=== PATIENT | female | born 1980 | race Caucasian/White ===

== ENCOUNTER 2016-09-10 08:57 | Emergency (ER) | payer OTHER ==
[~2016-09-10] VITALS: Ht 157.5 cm; Wt 66.2 kg
[2016-09-10 09:01] VITALS: BP 131/92; PULSE 94; RESP 12; O2SAT 98
--- NOTE | 2016-09-10 09:11 | ED.REPORT ---
HPI-Eye Problem Date of Service Sep 10, 2016 ED Provider: The patient is a 36 year old female with a history of antiphospholipid antibody syndrome, who presents to the emergency department complaining of double vision. This morning around 0725 the patient experienced about 3 minutes of double vision. She tried closing her eyes and opening them with no improvement. She looked in the mirror and noted that her eyes were not crossed. She was able to walk to her bed to lay down and the symptoms resolved in a few minutes. Her vision is now back to baseline. She was wearing glasses when the event occurred. She denies seeing floaters or a curtain coming down, photophobia, eye pain, blurry vision, numbness, weakness or headache. She denies recent trauma or injury. At this time she feels shaky but is otherwise normal. She has occasional migraines and has experienced photophobia in the past but has never noticed neurologic symptoms. Her LNMP was late July. She is not on brith control but does not believe there is any chance she could be . Nursing Notes Stated Complaint: DOUBLE VISION Chief Complaint: Neuro Symptoms/ Deficits Nursing Notes Reviewed: Yes Allergies: Coded Allergies: No Known Allergies (Unverified , 09/10/16) General Time Seen by MD: 09:10 Chief Complaint Both eyes affected, Double vision Hx Obtained From: Patient Arrived By: Walk-in Sudden in Onset?: Yes Onset Occurred: 1 - 4 hours ago Symptom Duration: 1 - 15 minutes Progression Since Onset: Resolved Severity: Current: No pain currently Severity: Maximum: No pain Pertinent Negative: Pt denies other symptoms Recent Healthcare: No recent doctor visit, No recent hospitalization Similar Sx Previous: No Past Medical History Past Medical History Hx of antiphospholipid syndrome Occasional migraines Family History Noncontributory Social History Other Social History: Good social support, , Lives with children, Local resident 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 Physical Exam Initial Vital Signs Vital Signs (First) Date Time Temp Pulse Resp B/P Pulse Ox O2 Delivery O2 Flow Rate FiO2 09/10/16 09:01 36.4 94 12 131/92 98 Room Air Initial VS: Reviewed ENT: Mucous membranes moist, Conjunctiva normal, No scleral icterus Neck: Supple, Non-tender, Full range of motion Respiratory: Breath sounds normal, Clear to auscultation, No respiratory distress Cardiovascular: Regular rate & rhythm, Heart sounds normal, Intact distal pulses Abdomen / GI: Soft, Non-tender, No guarding, No rebound, No distention Lymphatic: No lymphadenopathy Extremities: Vascular intact, Neuro intact, No swelling, No tenderness Skin: Warm, Dry, No cyanosis Psychiatric: Mood/affect normal, Behavior normal, Normal thought content Head / Eyes: Atraumatic, Normocephalic, PERRL, EOMI Pupils are 3 mm, equal, round, and reactive bilaterally. No foreign bodies or evidence of trauma to the eyes. Corneal light reflex is equal bilaterally. fundoscopic exam is normal. Optic discs are sharp. normal vasculature. Visual acuity 20/25 for both eyes. General/Constitutional: Awake, Alert, No acute distress, Well appearing, Well developed, Well hydrated, Well nourished, Cooperative Neurologic: Oriented X3, Speech NL, No motor deficits, No sensory deficits, CN II - XII intact, Cerebellar NL, Memory NL, Gait NL No pronator drift. Strength is 5/5 in the upper and lower extremities. Sensation intact. Interpretation & Diagnostics Interpretation & Diagnostics: Urine : negative Lab Results Interpretation Result Diagram: 09/10/16 1030 09/10/16 1030 Test 09/10/16 10:30 White Blood Count 5.5th/mm3 (3.8-10.1) Red Blood Count 5.02mil/mm3 (3.90-5.20) Hemoglobin 14.1g/dL (12.0-15.6) Hematocrit 40.9% (35.0-46.0) Mean Corpuscular Volume 81.5fL (81-100) Mean Corpuscular Hemoglobin 28.1pg (27.0-35.0) Mean Corpuscular Hemoglobin Concent 34.5% (32.0-37.0) Red Cell Distribution Width 13.0% (12.3-15.4) Platelet Count 178bil/L (150-400) Neutrophils (%) (Auto) 59.3% (40-74) Lymphocytes (%) (Auto) 30.9% (14-46) Monocytes (%) (Auto) 7.6% (4-12) Eosinophils (%) (Auto) 1.8% (0-5) Basophils (%) (Auto) 0.2% (0-3) Prothrombin Time 11.1sec (8.1-12.5) Prothromb Time International Ratio 1.04ratio Activated Partial Thromboplast Time 32.0sec (22.8-33.0) Sodium Level 136mEq/L (134-144) Potassium Level 4.2mEq/L (3.5-5.2) Chloride Level 99mEq/L (97-108) Carbon Dioxide Level 23mmol/L (18-29) Blood Urea Nitrogen 17mg/dL (6-20) Creatinine 0.71mg/dL (0.57-1.00) Estimat Glomerular Filtration Rate 133mL/min (>59) Glucose Level 91mg/dL (60-99) Calcium Level 9.8mg/dL (8.5-10.1) Total Bilirubin 0.5mg/dL (0.0-1.2) Aspartate Amino Transf (AST/SGOT) 23U/L (0-50) Alanine Aminotransferase (ALT/SGPT) 21U/L (0-32) Alkaline Phosphatase 81U/L (25-150) Total Protein 8.2g/dL (6.4-8.4) Albumin 4.6g/dL (3.4-5.0) Hold Haskins Top Tube Received (Received) Re-Eval/Medical Decision Med Decision/Clinical Course The patient is a 36 year old female in generally excellent health with a history of 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 Here in the emergency department she reports absolutely no other associated neurologic symptoms and has a completely nonfocal culture had some neurologic assessment. She is afebrile with stable vital signs and in no apparent distress. In the past her antiphospholipid antibody syndrome is been manifested by placental insufficiency during her first however she has never had any other manifestations of her antiphospholipid antibody syndrome such as TIA, stroke, DVT or pulmonary embolism. She does not currently take aspirin or any other blood thinners for that matter. She was treated with Lovenox during her subsequent 2 pregnancies though she is currently not and has not recently been treated with any blood thinners. While antiphospholipid antibody syndrome can be associated with TIA/stroke and focal neurologic manifestations for what I can gather the patient's antiphospholipid antibody syndrome is in the past only been manifested during . Her ophthalmologic and neurologic examinations here are completely nonfocal. I explained to the patient that I cannot definitively rule out TIA and that our suspicion is slightly higher for TIA given her history. Being said , the patient is completely back to baseline and does not desire admission to the hospital or extensive expedited workup. Discussed with Dr. Angel and he agrees that concern would be TIA 2/2 hypercoagulable state, full workup would be MRI and MRA so this can be done on an outpatient basis. Would recommend starting baby ASA daily. First aspirin administered here in emergency department. Basic Labs requested. Return for any returning symptoms per our conversation. Updated patient as to plan for expedited outpatient workup. She prefers this. She remained neurologically intact without any ongoing symptoms. Laboratory studies including CBC and CMP were unremarkable. Coag studies were negative. Urine negative. She has been referred to Dr. angel and will call today to arrange for follow-up appointment. She is to return to the emergency room immediately for any recurrent or new neurologic symptoms. Follow-up and return precautions were given in detail she was discharged in good condition. Source of Hx: Old records Re-Evaluation/Progress #1: Time of Eval: 09:54 Re-Evaluation/Progress Note: Discussed exam findings, consult, and plan for workup. All questions were addressed. Re-Evaluation/Progress #2: Time of Eval: 10:51 Re-Evaluation/Progress Note: The patient refuses aspirin. Re-Evaluation/Progress #3: Time of Eval: 11:25 Re-Evaluation/Progress Note: Discussed plan for discharge. Consultation : Referral / Consult Name: Lavell Angel MD Consulted With: Neurology Call Returned at: 09:48 Pattern Repair Person: Will see in office, Agrees with eval, Agrees with plan Counseled Regarding: Diagnosis, Lab results, Need for follow-up, When/why to return to ED Discharge & Departure Primary Impression: Diplopia Additional Impression: History of antiphospholipid antibody syndrome Disposition: Home Discharge Condition All VS Reviewed: Yes Condition: Stable Additional Instructions: Thank you for seeking care at the emergency room. Our primary goal today in the ED was to evaluate you for any life-threatening conditions. Your evaluation was reassuring. You should follow-up with a neurologist. We have given you a referral to Dr. Angel. Call today to schedule an appointment. You should also start taking 81 mg aspirin daily. You should return to the ED immediately if you develop recurrent double vision, vision loss, headache, numbness, weakness, slurred speech, problem walking, or any other concerning signs or symptoms. Thank you for letting us partake in your care today. Referrals: [facility] Lavell Angel MD Attestation Portions of this note were transcribed by Gail Paredes. I, Dr. Fox personally performed the history, physical exam and medical decision-making; I reviewed and confirmed the accuracy of the information in the transcribed note. Signed by: Adolfo Spears, 09/10/2016 at 1130. copies to: Lavell Angel MD, Beck O MD Sep 10, 2016 09:10 Gail Paredes Sep 10, 2016 09:15
[2016-09-10 10:43] LABS: BASOPHILS % (AUTO) 0.2 % (0-3); EOSINOPHILS % (AUTO) 1.8 % (0-5); MONOCYTES % (AUTO) 7.6 % (4-12); Mean Corpuscular Hemoglobin 28.1 pg (27.0-35.0); Mean Corpuscular Volume 81.5 fL (81-100); NEUTROPHILS % (AUTO) 59.3 % (40-74); Platelet Count 178 bil/L (150-400)
[2016-09-10 10:55] LABS: INR 1.04 ratio
== END 2016-09-10 11:30 | disposition home or self-care (01) ==
LOC: SED 08:57
DX: H53.2 Diplopia (principal); Z86.2 Personal history of diseases of the blood and blood-forming organs and certain disorders involving the immune mechanism